=== PATIENT | female | born 1960 | race Two or more races ===

== ENCOUNTER 2024-10-28 12:40 | Emergency (ER) | payer OTHER, MEDICAID ==
[~2024-10-28] VITALS: Ht 170.2 cm; Wt 96.1 kg
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
[2024-10-28] MEDS: TETANUS-DIPTH-ACEL PERTUSSIS 0.5ML SYR Tdap IM ONE (14:52)
[2024-10-28] MEDS: NEOMYCIN-BACITRACIN-POLYM UNITDOSE PKG TOP OINT TOP ONE (14:55)
[2024-10-28 15:02] VITALS: BP 128/78; PULSE 99; RESP 18; TEMP 98.4; O2SAT 97
[2024-10-28] MEDS ORDERED: AUG875T PO (15:04)
== END 2024-10-28 15:14 | disposition home or self-care (01) ==
LOC: ER 12:40
DX: S51.831A Puncture wound without foreign body of right forearm, initial encounter (principal); Z88.5 Allergy status to narcotic agent; Z79.899 Other long term (current) drug therapy; W54.0XXA Bitten by dog, initial encounter; Y93.01 Activity, walking, marching and hiking; Y92.828 Other wilderness area as the place of occurrence of the external cause; Y99.8 Other external cause status
CPT/HCPCS: 12001; 90471; 90715